=== PATIENT | female | born 1950 | race Caucasian/White ===

== ENCOUNTER → 2016-11-27 | Outpatient (CLI) | payer BC ==
--- NOTE | 2016-11-27 13:44 | EKG ---
[address] [address] Measurements Intervals [place] Rate: 108 P: -80 AK: 130 QRS: 94 QRSD: 91 T: 10 QT: 339 QTc: 402 Interpretive Statements JUNCTIONAL TACHYCARDIA WITH OCCASIONAL SUPRAVENTRICULAR PREMATURE COMPLEXES BORDERLINE RIGHT AXIS DEVIATION [QRS AXIS > 90] INCOMPLETE RIGHT BUNDLE BRANCH BLOCK NONSPECIFIC T-WAVE ABNORMALITY ABNORMAL RHYTHM ECG No previous ECG available for comparison Electronically Signed On 11-27-16 14:36:37 [facility] by Michelet Portillo [id number]
== END ==
LOC: EKG 11:54
PROVIDERS: ATTEND Family Medicine
DX: I10 Essential (primary) hypertension (principal); R00.0 Tachycardia, unspecified; I45.19 Other right bundle-branch block; F41.9 Anxiety disorder, unspecified; F17.210 Nicotine dependence, cigarettes, uncomplicated
CPT/HCPCS: 93005; 93010

== ENCOUNTER → 2016-12-14 | Outpatient (CLI) | payer BC ==
[2016-12-14 12:54] LABS: HEMATOCRIT 41.7 % (37.0-47.0); HEMOGLOBIN 14.3 g/dL (12.0-16.0); MEAN CORPUSCULAR HEMOGLOBIN 34.1 PG (27-31); MEAN CORPUSCULAR HGB CONC 34.3 g/dL (33-37); MEAN PLATELET VOLUME 10.4 FL (7.4-12.2); RDW COEFFICIENT OF VARIATION 13.4 % (11.5-14.5); RED BLOOD COUNT 4.19 10^6/uL (4.20-5.40); WHITE BLOOD COUNT 10.41 10^3/uL (4.8-10.8)
[2016-12-14 13:14] LABS: ASPARTATE AMINO TRANSFERASE 16 IU/L (8-39); BILIRUBIN,TOTAL 0.4 mg/dL (0.3-1.2); BLOOD UREA NITROGEN 10 mg/dL (7-22); BUN/CREATININE RATIO 16.66 (6-20); CALCIUM 9.5 mg/dL (8.7-10.7); CHLORIDE 105 meq/L (98-112); CREATININE 0.6 mg/dL (0.50-1.20); EST GLOMERULAR FILTRATION > 60 (>60 ml/min/1.73m(2)); GLUCOSE 107 mg/dL (78-110); SODIUM 142 meq/L (135-145); TOTAL PROTEIN 6.3 g/dL (6.1-8.0)
--- NOTE | 2016-12-14 14:23 | DI ---
DUPLEX COLOR DOPPLER CAROTID ULTRASOUND, 12/14/2016 12:48 PM: Clinical History: Dizziness. Previous Exam: None at this facility. Technique: 2D real time imaging is supplemented with duplex color doppler ultrasound imaging. RIGHT CAROTID ARTERY: 2D real time imaging of the right carotid system shows a normal appearance of the right common caroti d artery. Calcified plaques are present in the carotid bulb. The internal and external carotid arteri es are normal. Peak systolic velocities through the right common carotid, the external carotid, and t he internal carotid are 106 cm/s, 87 cm/s, and 70 cm/s, respectively. All values correspond to diamet er stenoses of 0-49%. LEFT CAROTID ARTERY: 2D real time imaging of the left carotid system shows a normal appearance of the left common carotid artery. Minimal calcified plaques are present in the carotid bulb. The internal and external carotid arteries are normal. Peak systolic velocities through the left common carotid, the external carotid, and the internal carotid are 93 cm/s, 62 cm/s, and 69 cm/s, respectively. All values correspond to di ameter stenoses of 0-49%. VERTEBRAL ARTERIES: There is antegrade flow through both vertebral arteries Cardiac rhythm is regular. Peak systolic [place] through the visualized portions of the right and left vertebral arteries are 48 cm/s and 38 cm /s, respectively. Both values correspond to diameter stenoses of zero-49%. Readin. There is no hemodynamically significant stenosis of either carotid system. 2. There is antegrade flow through both vertebral arteries. Cardiac rhythm is regular.
--- NOTE | 2016-12-18 09:24 | HOLTER ---
[facility] [place] [id number]
== END ==
LOC: LAB 12:36
PROVIDERS: ATTEND Family Medicine
DX: R42 Dizziness and giddiness (principal); R55 Syncope and collapse; F17.210 Nicotine dependence, cigarettes, uncomplicated
CPT/HCPCS: 36415; 80053; 84443; 85027; 93880

== ENCOUNTER → 2017-02-12 | Outpatient (CLI) | payer BC | LOC: MOB LAB 08:16 | PROVIDERS: ATTEND Family Medicine | DX: K86.1 Other chronic pancreatitis (principal) | CPT/HCPCS: 36415; 82024; 82533 ==

== ENCOUNTER → 2017-03-16 | Outpatient (CLI) | payer BC ==
--- NOTE | 2017-03-16 10:59 | EKG ---
[address] [place] [address] Measurements Intervals [place] Rate: 80 P: DE: 0 QRS: 97 QRSD: 90 T: 75 QT: 390 QTc: 426 Interpretive Statements SINUS RHYTHM WITH PREMATURE ATRIAL CONTRACTION AND JUNCTIONAL RHYTHM BORDERLINE RIGHT AXIS DEVIATION SHOORT DE INTERVAL POSSIBLE RIGHT VENTRICULAR CONDUCTION DELAY [ NONSPECIFIC T-WAVE ABNORMALITY ABNORMAL RHYTHM ECG Compared to ECG 11/27/2016 12:05:40 Incomplete right bundle-branch block no longer present T-wave abnormality still present Electronically Signed On 03-16-17 16:08:10 [facility] by Michelet Portillo [id number]
== END ==
LOC: MOB EKG 10:35
PROVIDERS: ATTEND Specialist
DX: R55 Syncope and collapse (principal); I95.9 Hypotension, unspecified; F17.200 Nicotine dependence, unspecified, uncomplicated
CPT/HCPCS: 93005; 93010

== ENCOUNTER 2017-06-10 10:40 | Emergency (ER) | payer BC ==
[2017-06-10 11:09] VITALS: RESP 18; TEMP 98
[2017-06-10] MEDS ORDERED: NORMAL SALINE 10 ML SYRINGE FLUSH IVP PRN (11:11)
[2017-06-10] MEDS ORDERED: Sodium Chloride 0.9% 1,000 ML PRIMARY IV ONE (11:11)
[2017-06-10] MEDS ORDERED: ONDANSETRON 4 MG/2 ML VIAL IVP ONE (11:11)
[2017-06-10] MEDS ORDERED: Famotidine Inj 20 MG in Normal Saline Flush 10 ML IVP ONE (11:11)
[2017-06-10] MEDS ORDERED: MORPHINE SULFATE 2 MG/1 ML IV ONE (11:11)
[2017-06-10 11:28] LABS: HEMOGLOBIN 15.2 g/dL (12.0-16.0); RED BLOOD COUNT 4.57 10^6/uL (4.20-5.40)
[2017-06-10 11:29] LABS: BASOPHILS % (AUTO) 0.9 % (0-1); HEMATOCRIT 44.2 % (37.0-47.0); MEAN CORPUSCULAR HEMOGLOBIN 33.3 PG (27-31); MEAN CORPUSCULAR HGB CONC 34.4 g/dL (33-37); MEAN CORPUSCULAR VOLUME 96.7 FL (81-99); MEAN PLATELET VOLUME 10.5 FL (7.4-12.2); MONOCYTES % (AUTO) 5.6 % (5-15); NEUTROPHILS # (AUTO) 6.28 10*3/UL; NEUTROPHILS % (AUTO) 66.9 % (50-80)
[2017-06-10 11:30] LABS: BASOPHILS # (AUTO) 0.08 10*3/UL; EOSINOPHILS # (AUTO) 0.28 10*3/UL; MONOCYTES # (AUTO) 0.53 10*3/UL (0.3-0.8); PLATELET MORPHOLOGY COMMENT NORMAL MORPHOLOGY (NORM); RBC MORPHOLOGY COMMENT NORMAL MORPHOLOGY (NORM); WBC MORPHOLOGY COMMENT NORMAL MORPHOLOGY (NORM)
[2017-06-10 11:36] LABS: BLOOD UREA NITROGEN 12 mg/dL (7-22); CALCIUM 9.4 mg/dL (8.7-10.7); EST GLOMERULAR FILTRATION > 60 (>60 ml/min/1.73m(2)); LIPASE 208 IU/L (23-300)
[2017-06-10 11:38] LABS: BILIRUBIN,URINE NEGATIVE (NEG); CLARITY,URINE CLEAR (CLEAR); COLOR,URINE YELLOW; GLUCOSE, URINE (UA) NEGATIVE (NEG); NITRATE,URINE NEGATIVE (NEG); OCCULT BLOOD,URINE NEGATIVE (NEG); PH,URINE 7.5 (5.0-8.5); PROTEIN,URINE NEGATIVE (NEG); UROBILINOGEN,URINE 0.2 EU/dL (0.2)
[2017-06-10 11:39] LABS: SQUAMOUS EPITHELIAL CELL,UR RARE; URINE SAMPLE TYPE CLEAN CATCH URINE
[2017-06-10] MEDS ORDERED: MORPHINE SULFATE 2 MG/1 ML IVP ONE ×2 (12:34→14:18)
--- NOTE | 2017-06-10 14:27 | DI ---
CT ABD W/CN AND PELVIS W/CN,06/10/2017 11:12 AM: Clinical History: Abdominal pain Previous Exam: None at this facility. Findings: Multiple helically acquired CT images are obtained through the abdomen and pelvis following the intra venous administration of 75 cc of Isovue 300, and demonstrate peripheral vascular calcifications. The urinary bladder is unremarkable. Skeletal structures demonstrate mild degenerative changes of the sacroiliac joints and lumbar spine. There is airspace disease within the right lung base and a very small right pleural effusion. This co uld represent an early pneumonia. There is a subcentimeter hypodensity within the superior pole the right kidney most likely representi ng a simple cyst. The kidneys, adrenals, liver, spleen and pancreas are unremarkable. Patient is status post cholecyste ctomy. Post surgical changes are seen at the gastroesophageal junction. Multiple colonic diverticula are seen without evidence of acute diverticulitis. Impression: 1. Airspace disease within the right lung base worrisome for early right lower lobe pneumonia.
--- NOTE | 2017-06-10 14:27 | DI ---
XR CXR 2VW PA/LAT,06/10/2017 1:44 PM: Clinical History: Cough Previous Exam: None at this facility. Findings: PA and lateral views of the chest are obtained, and demonstrate a 6 mm nodule within the right lung b ase. This is larger than the adjacent vasculature. There is no infiltrate nor effusion. The cardiomediastinum is unremarkable. Degenerative changes of t he thoracic spine appear to be age appropriate. Patient is status post cholecystectomy. Impression: 6 mm nodule within the right lung base. Recommend CT chest without contrast for further evaluation.
--- NOTE | 2017-06-10 17:46 | PDOC ---
General Adult HPI - General Chief Complaint: Neck / Back Complaint Stated Complaint: BACK PAIN Date Seen by Provider: 06/10/17 Time Seen by Provider: 10:50 Source: POSITIVE: Patient, Spouse Exam Limitations: POSITIVE: No limitations Nurse's Notes Reviewed & Considered: Yes - History of Present Illness Initial Comment: The patient is a 66-year-old female. Patient states that for the past several days she has had some discomfort in the right posterior lower thorax and right subcostal area. She's also had some increased cough. Patient states she has a history of chronic pancreatitis which had in the past has presented with pain in this distribution. She's had a cholecystectomy. She's had some associated nausea. No fevers. No melena, hematochezia, hematemesis, dysuria or hematuria. No chills. She has had no alcohol for 30 years. She's had a hysterectomy and bilateral thoracic splanchnectomy for chronic "pancreas pain ". Have you received a tetanus shot in the past 10 years?: No Body Location Affected: REPORTS: Chest, Abdomen Timing: REPORTS: Constant Duration: >24 hours Severity: Moderate Quality: REPORTS: "Pain" Context: REPORTS: None Modifying Factors: improves with: Coughing Similar Symptoms Previously: Yes (as above) Recent Care Received: REPORTS: Denies Any Prior Injuries Related to Current Complaint?: No - Patient Home Medications Home Medications: Home Medications Fludrocortisone Acetate 0.2 mg PO DAILY #60 tab 06/01/17 Gabapentin 2 cap PO TID #540 cap 06/01/17 Hydrocodone/Acetaminophen [Hydrocodon-Acetaminophen 5-325] 1 tab PO BID PRN #60 tab 06/01/17 Sertraline HCl 1 tab PO DAILY #90 tab 06/01/17 Trazodone HCl 1 tab PO QHS #90 tab 06/01/17 Azithromycin [Zithromax] 500 mg PO DAILY #5 tab 06/10/17 Diphenhydramine HCl [Benadryl] 25 mg PO .BID WITH VICODIN 06/10/17 - Patient Allergies Allergies/Adverse Reactions: Allergies Allergy/AdvReac Type Severity Reaction Status Date / Time acetaminophen [From Vicodin] Allergy Intermediate itching Verified 06/10/17 10: 49 hydrocodone bitartrate Allergy Intermediate itching Verified 06/10/17 10:49 [From Vicodin] oxycodone HCl [From Percocet] Allergy Mild itching Verified 06/10/17 10:49 tramadol Allergy Mild itching Verified 06/10/17 10:49 Past Medical History - heen HEENT History: Denies History Cardiovascular History: Hypotension Respiratory History: Denies History Gastrointestinal History: Pancreatitis Genitourinary History: Denies History Endocrine History: Denies History Musculoskeletal History: Denies History Neurological History: Other (please comment) Additional Neurological History: peripheral neuropathy Blood Disorders: Denies History Psychiatric History: Denies History History of Sexually Transmitted Diseases: No Female Reproductive History: Hysterectomy Obstetrical History: Denies History Cancer History: Denies History In Past Year Been Physically Harmed or Verbally Threatened: No History of MDRO: No History of Other Communicable Diseases: No Tobacco Use: Current Every Day Smoker Alcohol Use: None Substance Use Type: None Previous Surgical History: Yes Type / Date of Surgery: TOTAL HYSTERECTOMY, SINSUS SURGERY, AUGUST KNEE SCOPES, LEFT SHOULDER SCOPE, RIGHT TRIGGER FINGER RELEASE, CHOLECYSTECTOMY, THORASIC NERVE ABLASION Significant Family History: No pertinent family hx Past Medical History Reviewed: Reviewed - No Changes ROS - Limitations ROS Limitations: No Limitations Constitution: REPORTS: Denies Symptoms Cardiovascular: REPORTS: Denies Cardiac Symptoms Respiratory: REPORTS: Cough Productive (Mildly productive) Neurological: REPORTS: Denies Neuro Symptoms Gastrointestinal: REPORTS: Abdominal Pain (Right subcostal area), Nausea Endocrine: REPORTS: Denies Symptoms Musculoskeletal: REPORTS: Denies MS Symptoms Genitourinary: REPORTS: Denies Symptoms Eyes: REPORTS: Denies Symptoms ENT: REPORTS: Denies Symptoms Skin: REPORTS: Denies Skin Symptoms Lympathic: REPORTS: Denies Lympathic Symptoms Immunologic: POSITIVE: Denies Symptoms Psychiatric: POSITIVE: Denies Psych Symptoms General Adult Exam - General Appearance General Appearance: POSITIVE: Alert, Cooperative, No Acute Distress, No Evidence of Trauma - HEENT HEENT: POSITIVE: Head Inspection Nml, Eyes Inspection Nml, Ears Inspection Nml, Nose Inspection Nml, Oral/Dental Inspect. Nml, Pharynx Inspect. Nml, PERRL, EOMI - Pupils Pupil Size: 3 mm: Bilateral - Neck Neck: POSITIVE: Normal Inspection, Thyroid Normal - Respiratory Respiratory: POSITIVE: No Respiratory Distress, Breath Sounds Normal, Chest Non- Tender - Cardiovascular Cardiovascular: POSITIVE: Regular Rate & Rhythm, No Murmur, No Gallop, PMI Normal Peripheral Pulses: Radial (R): 2+, Radial (L): 2+ - Abdomen Abdomen: Soft: (All Quadrants), Normal Bowel Sounds: (All Quadrants), Denies Tenderness: (LLQ), (RLQ), (LUQ), No Splenomegaly: (All Quadrants), No Hepatomegaly: (All Quadrants), No Guarding: (All Quadrants), No Rebound: (All Quadrants), No Palpable Pulse: (All Quadrants), No Palpabale Mass: (All Quadrants), No Distention: (All Quadrants), No Rigidity: (All Quadrants), Tenderness Noted: (RUQ) Additional Abdominal Details: Abdominal examination shows bowel sounds to be active. Patient does have some discomfort on firm direct palpation in the subcostal area and epigastrium. No masses, organomegaly or rebound. 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 CT scan abdomen and pelvis is normal except for some finding compatible with pneumonia in the right lower lung. CT scan of the chest with IV contrast shows changes compatible with a right lower lobe pneumonia. Lab Results Reviewed: Yes Lab Results:: Laboratory Results 06/10/17 06/10/17 Range/Units 10:48 11:22 WBC 9.39 (4.8-10.8) 10^3/uL RBC 4.57 (4.20-5.40) 10^6/uL Hgb 15.2 (12.0-16.0) g/dL Hct 44.2 (37.0-47.0) % MCV 96.7 (81-99) FL MCH 33.3 H (27-31) PG MCHC 34.4 (33-37) g/dL RDW Std Deviation 47.7 (39-50) fL RDW Coeff of Christian 13.8 (11.5-14.5) % Plt Count 361 H (140-350) 10*3/uL MPV 10.5 (7.4-12.2) FL Immature Gran % (Auto) 0.2 (0-5) % Neut % (Auto) 66.9 (50-80) % Lymph % (Auto) 23.4 (10-50) % [place] % (Auto) 5.6 (5-15) % Eos % (Auto) 3.0 (0-8) % Baso % (Auto) 0.9 (0-1) % Immature Gran # (Auto) 0.02 10*3/UL Neut # (Auto) 6.28 10*3/UL Lymph # (Auto) 2.20 10*3/uL [place] # (Auto) 0.53 (0.3-0.8) 10*3/UL Eos # (Auto) 0.28 10*3/UL Baso # (Auto) 0.08 10*3/UL WBC Morphology Comment Normal morphology (NORM) Plt Morphology Comment Normal morphology (NORM) RBC Morph Comment Normal morphology (NORM) Sodium 140 (135-145) meq/L Potassium 4.0 (3.8-5.2) meq/L Chloride 105 (98-112) meq/L Carbon Dioxide 28 (23-33) meq/L Anion Gap 7 (5-20) BUN 12 (7-22) mg/dL Creatinine 0.6 (0.50-1.20) mg/dL Estimated GFR > 60 (>60 ml/min/1.73m(2)) BUN/Creatinine Ratio 20.00 (6-20) Glucose 89 (78-110) mg/dL Calculated Osmolality 288.0 (267-292) mOsm/kg Calcium 9.4 (8.7-10.7) mg/dL Total Bilirubin 0.6 (0.3-1.2) mg/dL AST 22 (8-39) IU/L ALT 26 (9-52) IU/L Alkaline Phosphatase 101 (38-126) IU/L Total Protein 7.4 (6.1-8.0) g/dL Albumin 4.0 (3.5-4.8) g/dL Globulin 3.4 (2.50-4.10) g/dL Albumin/Globulin Ratio 1.10 L (1.3-2.0) mg/g Amylase 129 H (30-110) U/L Lipase 208 (23-300) IU/L Ur Collection Type Clean catch urine Urine Color Yellow Urine Clarity Clear (CLEAR) Urine pH 7.5 (5.0-8.5) Ur Specific [place] 1.010 (1.005-1.030) Urine Protein Negative (NEG) mg/dl Urine Glucose (UA) Negative (NEG) mg/dL Urine Ketones Negative (NEG) Urine Occult Blood Negative (NEG) Urine Nitrate Negative (NEG) Urine Bilirubin Negative (NEG) Urine Urobilinogen 0.2 (0.2) EU/dL Ur Leukocyte Esterase Trace (NEG) Urine RBC 1-3 (NONE) /hpf Urine WBC 2-4 (NONE) Ur Squamous Epith Cells Rare (NONE) Ur Renal Epithelial Cell None (NONE) Urine Crystals None Urine Bacteria None (NONE) Urine Casts None (NONE) Urine Mucus None (NONE) Urine Trichomonas None (NONE) Urine Yeast None (NONE) Ur Culture Indicated? Culture not set - Patient's Progress Pain Medication Addressed: POSITIVE: Yes (Patient given morphine IV) School/Work Release Addressed: POSITIVE: Not Applicable Re-Examine Time: 16:17 Re-Examine Comment: Diagnosis discussed with patient and . Blood cultures drawn. Patient prescribe Zithromax, 500 mg daily for 5 days. Patient advised is no evidence of pancreatitis at this time. Status: POSITIVE: Improved, Re-Examined Antibiotics Given: Yes (Zithromax) - Consult Counseled: POSITIVE: Patient, Family, RE: Lab Results, RE: Radiology Results, RE : DX, RE: Need for F/U Patient Care Time - Estimated PCT Patient Care Time (In Minutes): 60 Vital Signs - Recent Vital Signs Vital Signs: Vital Signs (Last 8 hours) Temp Pulse Resp BP Pulse Ox 06/10/17 11:04 98 F 138 H 18 138/81 91 - VS Reviewed Vital Signs Reviewed: Yes Discharge Clinical Impression: Pneumonia Discharge Disposition: Discharged to Home Condition: Good Prescriptions / Orders: Azithromycin [Zithromax] 500 mg PO DAILY #5 tab Patient Instructions Given at Discharge: Pneumonia (ED) Additional Instructions: Zithromax, 1 daily for 5 days. Follow-up with your primary care provider. Return here anytime if condition worsens in any way. Follow Up With: VIANCA EPSTEIN [Primary Care Provider] - (Instructions as above. Follow-up with your primary care provider. Return here anytime if condition worsens in any way.)
--- NOTE | 2017-06-10 19:09 | DI ---
CT CHEST W/CONTRAST,06/10/2017 2:16 PM: Clinical History: Seen within the right lung base. Previous Exam: None at this facility. Findings: Multiple helically acquired CT images are obtained through the lungs following the intravenous admini stration of contrast. The thyroid is unremarkable. There is some airspace disease within the right lung base most consistent with some early pneumonia. The pulmonary arteries are normal. The aorta is also normal. There are multiple calcified hilar and mediastinal lymph nodes as well as a calcified lymph node with in the left granuloma within the left posterior sulcus. There are also calcified lymph nodes within t he right hilum. The upper abdomen is unremarkable. Postsurgical changes are seen at the gastroesophageal junction. Degenerative changes of the spine are noted. Impression: Nodule seen within the right lung base corresponds with a calcified granuloma/calcified lymph node. M ultiple other calcified lymph nodes are seen. Airspace disease within the right lung base. This could represent an early pneumonia versus subsegmen cullen atelectasis. Correlate clinically.
== END 2017-06-10 16:32 | disposition home or self-care (01) ==
LOC: ER 10:40
DX: R91.1 Solitary pulmonary nodule (principal); R07.9 Chest pain, unspecified; R05 Cough; K86.1 Other chronic pancreatitis; M54.5 Low back pain; R10.9 Unspecified abdominal pain; Z72.0 Tobacco use
CPT/HCPCS: 36415; 71020; 71260; 74177; 80053; 81001; 81003; 82150; 83690; 85025; 87040; 96374; 96375; 96376; 99283 ×2; J2270; J2405; S0028; J7030

== ENCOUNTER 2017-06-25 09:47 | Day surgery (SDC) | payer BC ==
[~2017-06-25 09:47] MED LIST: LIDOCAINE 2% VISCOUS(20 MG/1 ML) - 15 ML UD CUP PO ONE; LIDOCAINE HCL/PF 2% (20 MG/ML) - 5 ML SYRINGE ONE; LIDOCAINE W/ SODIUM BICARB 0.5 ML SYR ONE; Lactated Ringers 1,000 ML PRIMARY IV ONE; MIDAZOLAM 5 MG/1 ML ONE
--- NOTE | 2017-06-25 11:32 | GEN.OPNOTE ---
EGD Operative Note Surgery Date: 06/25/17 Preoperative Diagnosis: Epigastric abdominal pain Postoperative Diagnosis: Hemorrhagic gastritis Procedure: Esophagogastroduodenoscopy with biopsies Surgeon: Estevan Orlando MD Anesthesia Provider: Linda Mcclendon CRNA Anesthesia Type: MAC Indications: Patient's been having epigastric abdominal pain radiating to her back. Findings: Esophagus: Olympus video EGD scope concerned posterior pharynx and the esophagus under direct visualization. Patient normal-appearing esophagus GE junction proximal be 40 cm GE Junction : GE junction 40 cm Fundus : Scope retroflexed on itself revealing a normal fundus Body : Patient has some scattered punctate hemorrhagic areas consistent with gastritis seen within the body the stomach Prepyloric : Prepyloric area had the appearance of chronic gastritis. there was actually some old blood stuck to the mucosa in these areas. She had punctate little ulcers consistent with hemorrhagic gastritis. Multiple biopsies taken for CLOtest and for pathology Small Intestine : First and second portion of the duodenum has some acute inflammatory inflammatory appearance. Biopsies taken. third portion of duodenum appeared to be normal A lubricated flexible upper endoscope was inserted and passed through the esophagus and stomach into the duodenum.
[2017-06-25 13:28] VITALS: RESP 12
[2017-06-25 13:29] VITALS: TEMP 97.2
== END 2017-06-25 12:00 | disposition home or self-care (01) ==
LOC: SDSC 09:47
PROVIDERS: ATTEND Surgery
DX: K92.2 Gastrointestinal hemorrhage, unspecified (principal); R10.13 Epigastric pain
CPT/HCPCS: 43239; 87339; J2250; J2704; J7120